=== PATIENT | female | born 1970 | race Caucasian/White ===

== ENCOUNTER 2017-10-03 05:07 | Emergency (ER) | payer MEDICARE ==
[2006-02-13 12:25] VITALS: BP 128/75
[~2017-10-03] VITALS: Ht 165.1 cm; Wt 93.2 kg
[~2017-10-03 05:07] MED LIST: ALBUTEROL0.09 MG/A1 IH; AMARYL; AMARYL4 MG PO; AMOXICILLI250 MG/51 PO; AUGMENTIN 400100 ML PO; CEFTIN250 M1 PO; CEFTIN500 MG PO; CIPRO 500MG TA500 MG PO; DIABETIC PILL; DOXYCYCLINE 10100 MG PO; DOXYCYCLINE100 M2 PO; FLEXERIL 1010 MG/TAB PO; FLEXERIL10 MG PO; GLUCOPHAGE500 MG PO; KETOROLAC10 MG PO; LEVAQUIN; LORTAB 5/500 501 TAB PO; METRONIDAZOLE500 MG PO; NORCO 325 MG-7.1 TAB PO; ONGLYZA5 MG PO; PHENERGAN25 MG RC; PREDNISONE20 MG PO; PYRIDIATE200 MG PO; QVAIR; STEROID INHALER; SUDAFED 30M30 MG/TAB PO; TESSALON PERLE200 MG PO; TRAMADOL50 MG PO; ULTRAM 50MG TAB50 MG PO; VENTOLIN0.09 MG IH; ZITHROMAX Z PA250 MG PO; ZOFRAN 4MG T4 MG/TAB PO; ZOFRAN4 M1 PO; ZOFRAN4 MG PO; [UNRECOGNIZED DRUG - OTHER]; [UNRECOGNIZED DRUG - OTHER]; [UNRECOGNIZED DRUG - OTHER]
[2017-10-03 05:10] VITALS: BP 143/89; TEMP 98.3
[2017-10-03] MEDS ORDERED: NOVOLOG 100U100 U/M1 SQ (05:18)
[2017-10-03] MEDS ORDERED: HUMALOG100 U/ML SQ (05:18)
[2017-10-03] MEDS ORDERED: CANA300T PO (05:19)
[2017-10-03] MEDS ORDERED: ULTRAM 50MG TAB50 MG PO (06:26)
[2017-10-03 06:47] VITALS: PULSE 80
== END 2017-10-03 06:49 | disposition home or self-care (01) ==
LOC: COL.ER 05:07
DX: S46.812A Strain of other muscles, fascia and tendons at shoulder and upper arm level, left arm, initial encounter (principal); W22.8XXA Striking against or struck by other objects, initial encounter; X50.1XXA Overexertion from prolonged static or awkward postures, initial encounter; Y92.512 Supermarket, store or market as the place of occurrence of the external cause; E11.43 Type 2 diabetes mellitus with diabetic autonomic (poly)neuropathy; K31.84 Gastroparesis; Z79.4 Long term (current) use of insulin; Z88.6 Allergy status to analgesic agent; Z88.1 Allergy status to other antibiotic agents; Z88.5 Allergy status to narcotic agent; Z88.0 Allergy status to penicillin; Z88.2 Allergy status to sulfonamides; Z88.8 Allergy status to other drugs, medicaments and biological substances
CPT/HCPCS: J1170